=== PATIENT | female | born 1960 | race Caucasian/White ===

== ENCOUNTER 2025-04-23 14:54 | Outpatient (CLI) | payer MEDICARE, BC ==
[~2025-04-23 14:54] MED LIST: AMLO5TAB16 PO; APIX5TAB3 PO; CYCL-1 PO; FLUT16SP2 BOTHNARES; HYDR-4353 PO; LEVO100T PO; MONT-47 PO; MULT-620 PO; NEBI5TAB9 PO; OMEG1CAP2 PO; OMEP40CA21 PO; SUMA50TA PO
--- NOTE | 2025-04-23 17:22 | RADIOLOGY REPORT ---
PROCEDURE: MR MRI C SPINE Indication: NECK PAIN COMPARISON: None TECHNIQUE: Multiplanar multisequence images of the the cervical spine are obtained. FINDINGS: The cervical vertebral body heights are maintained. Reversal of normal cervical spine curvature. Anterior fusion of the C6 and C7 vertebral bodies with ankylosis of C6, C7. No prevertebral edema. Atlantooccipital, atlantoaxial articulations intact. Moderate multilevel disc space narrowing. C2-3: Small disc osteophyte complex. No spinal canal stenosis. Bvds-hp-hnivuhev bilateral neural foraminal stenosis. C3-4: Small disc osteophyte complex narrowing the ventral and dorsal CSF spaces. Thecal sac measures 8 mm AP. Kmer-xz-bjjtzbmf spinal canal stenosis. Moderate to severe right and moderate left neural foraminal stenosis. C4-5: Right paracentral disc osteophyte complex. Thecal sac measures 8 mm AP. Yemz-cz-gsanrprf spinal canal stenosis. Vutb-tl-izojmcer right and mild left neural foraminal stenosis. C5-6: Small disc osteophyte complex narrowing the ventral and dorsal CSF spaces. Thecal sac measures 8 mm AP. Hyak-xm-ktdsnqeb spinal canal stenosis. Severe bilateral neural foraminal stenosis, acje-kjxmjhn-yscr-right. C6-7: Small disc osteophyte complex. The thecal sac measures 8 mm AP. Ddcn-ig-qdffiyff spinal canal stenosis Moderate bilateral neural foraminal stenosis. C7-T1: Small disc osteophyte complex. Thecal sac measures 9 mm AP. Mild spinal canal stenosis. IMPRESSION: Moderate cervical degenerative disc disease. Anterior fusion of the C6 and C7 vertebral bodies. Kjxm-cz-amfzxqxx spinal canal stenosis at C3-4, C4-5, C5-6 and C6-7. Multilevel neural foraminal stenosis most pronounced at C5-6.
== END 2025-04-23 23:59 | disposition home or self-care (01) ==
LOC: MRI02 14:54
PROVIDERS: ATTEND Family Medicine
DX: M50.323 Other cervical disc degeneration at C6-C7 level (principal); M25.78 Osteophyte, vertebrae; M48.02 Spinal stenosis, cervical region
CPT/HCPCS: 72141

== ENCOUNTER 2025-05-14 15:52 | Outpatient (CLI) | payer MEDICARE, BC ==
--- NOTE | 2025-05-14 17:13 | VASCULAR REPORT ---
BILATERAL UPPER EXTREMITY ARTERIAL DUPLEX ULTRASOUND STUDY: REASON FOR EXAM: Asymmetrical blood pressures in the upper extremities in the office. TECHNIQUE: The full lengths of the arterial segments were evaluated with color- flow Doppler ultrasound. Suspected abnormalities were evaluated with malloy scale ultrasound. [employer] spectral Doppler waveforms, with velocity measurements were obtained. Spectral waveforms with velocity measurements were obtained 2 to 4 cm central to any areas of significant stenosis. Subclavian, axillary, brachial, radial, and ulnar arteries were evaluated. FINDINGS: Right: There is minimal atherosclerotic plaque throughout the right upper extremity. The subclavian artery waveform is multiphasic. The axillary and brachial arteries are patent with multiphasic waveforms. The radial and ulnar arteries are patent with multiphasic waveforms. Left: There is minimal atherosclerotic plaque throughout the left upper extremity. The subclavian artery waveform is multiphasic. The axillary and brachial arteries are patent with multiphasic waveforms. The radial and ulnar arteries are patent with multiphasic waveforms. IMPRESSION: No hemodynamically significant stenosis.
== END 2025-05-14 23:59 | disposition home or self-care (01) ==
LOC: VAS 15:52
PROVIDERS: ATTEND Family Medicine
DX: R03.0 Elevated blood-pressure reading, without diagnosis of hypertension (principal)
CPT/HCPCS: 93930